=== PATIENT | male | born 1955 | race Hispanic/Latino ===

== ENCOUNTER → 2018-07-08 | Outpatient (CLI) | payer OTHER | END | disposition home or self-care (01) | LOC: OIH 14:50 | PROVIDERS: ATTEND Internal Medicine | DX: M17.11 Unilateral primary osteoarthritis, right knee (principal); M47.816 Spondylosis without myelopathy or radiculopathy, lumbar region | CPT/HCPCS: 72100; 73560 ==

== ENCOUNTER 2018-09-30 14:52 | Emergency (ER) | payer OTHER | END 2018-09-30 15:53 | disposition home or self-care (01) | LOC: EDH 14:52 | DX: M54.41 Lumbago with sciatica, right side (principal); M54.12 Radiculopathy, cervical region; Z72.0 Tobacco use ==

== ENCOUNTER → 2019-05-13 | Outpatient (CLI) | payer MEDICAID | END | disposition home or self-care (01) | LOC: OIH 09:23 | PROVIDERS: ATTEND Family Medicine | DX: M47.816 Spondylosis without myelopathy or radiculopathy, lumbar region (principal); M47.812 Spondylosis without myelopathy or radiculopathy, cervical region; M47.814 Spondylosis without myelopathy or radiculopathy, thoracic region; M48.02 Spinal stenosis, cervical region; M17.0 Bilateral primary osteoarthritis of knee; M25.78 Osteophyte, vertebrae; R07.9 Chest pain, unspecified | CPT/HCPCS: 71046; 72040; 72100; 73560 ==

== ENCOUNTER → 2019-05-16 | Outpatient (CLI) | payer MEDICAID | END | disposition home or self-care (01) | LOC: RAH 13:01 | PROVIDERS: ATTEND Family Medicine | DX: R22.31 Localized swelling, mass and lump, right upper limb (principal) | CPT/HCPCS: 76882 ==

== ENCOUNTER → 2019-09-06 | Outpatient (CLI) | payer MEDICAID | END | disposition home or self-care (01) | LOC: RAH 08:47 | PROVIDERS: ATTEND Family Medicine | DX: K76.0 Fatty (change of) liver, not elsewhere classified (principal); F10.10 Alcohol abuse, uncomplicated; R94.5 Abnormal results of liver function studies | CPT/HCPCS: 76536; 76705 ==

== ENCOUNTER → 2020-08-02 | Outpatient (CLI) | payer OTHER, MEDICARE ==
[~2020-08-02] MED LIST: REGADENOSON 0.4 MG/5 ML PF SYG IVP SCH
== END | disposition home or self-care (01) ==
LOC: RAH 09:52
PROVIDERS: ATTEND Family Medicine
DX: I20.9 Angina pectoris, unspecified (principal); R07.9 Chest pain, unspecified; R05 Cough; R06.00 Dyspnea, unspecified
CPT/HCPCS: 78452; 93017; 96374; A9500 ×2; J2785

== ENCOUNTER 2023-10-30 07:14 | Day surgery (SDC) | payer OTHER ==
[2023-10-28 12:59] VITALS: BP 138/75; PULSE 70; RESP 16
[2023-10-28 13:18] LABS: BASOPHILS # (AUTO) 0.05 K/uL (0.00-0.20); BASOPHILS % (AUTO) 0.5 % (0.0-5.0); EOSINOPHILS # (AUTO) 0.13 K/uL (0.00-0.70); EOSINOPHILS % (AUTO) 1.4 % (0.0-8.0); IMMATURE GRANULOCYTE ABSOLUTE 0.03 K/uL (0-1); LYMPHOCYTES # (AUTO) 1.7 K/uL (1.0-4.8); LYMPHOCYTES % (AUTO) 18.3 % (21.0-51.0); MEAN CORPUSCULAR HEMOGLOBIN 31.4 pg (27.0-33.0); MEAN CORPUSCULAR HGB CONC 33.2 g/dL (32.0-36.0); MEAN CORPUSCULAR VOLUME 94.8 fL (79-99); MONOCYTES % (AUTO) 10.9 % (3.0-13.0); NEUTROPHILS # (AUTO) 6.3 K/uL (1.8-7.7); NEUTROPHILS % (AUTO) 68.6 % (40.0-77.0); PLATELET COUNT (AUTO) 381 K/uL (130-400); RED BLOOD CELL COUNT(AUTO) 4.01 MIL/uL (4.50-6.20); RED CELL DISTRIBUTION WIDTH 12.6 % (11.0-15.5); WHITE BLOOD COUNT (AUTO) 9.2 K/uL (4.8-10.8)
[2023-10-28 13:24] LABS: CREATININE 1.9 mg/dL (0.5-1.3); POTASSIUM 5.4 mmol/L (3.5-5.1)
[~2023-10-30] VITALS: Ht 170.2 cm; Wt 89.3 kg
[2023-10-30] VITALS (17 sets, daily range): BP systolic 81–142; BP diastolic 51–90; PULSE 65–107; RESP 15–19
[~2023-10-30 07:14] MED LIST changes: +AEC81 PO; +AMLO-257 PO; +ATOR40TA69 PO; +CYAN-106 PO; +EMPA25TA PO; +LORA10TA7 PO; +MELA1TAB28 PO; +METO-391 PO; +PANT20TA18 PO; +RAMI10CA76 PO; -REGADENOSON 0.4 MG/5 ML PF SYG IVP SCH; +TAMS-1 PO; +THIA250T10 PO
[2023-10-30] MEDS: 0.9%NACL 1000ML 1,000 ML IV ONE (08:33)
[2023-10-30 08:43] LABS: CREATININE 2.1 mg/dL (0.5-1.3); POTASSIUM 4.3 mmol/L (3.5-5.1)
[2023-10-30] MEDS: ceFAZolin SODIUM 2 GM VIAL ONE (09:17)
[2023-10-30] MEDS ORDERED: LIDOCAINE PF 100MG/5ML (2%) SYRINGE 5ML ONE (09:50)
[2023-10-30] MEDS ORDERED: proPOFol 10 MG/ML 20ML VIAL IV ONE ×2 (09:50→11:28)
[2023-10-30] MEDS ORDERED: FENTanyl CITRate PF 50 MCG/1 ML 2ML VIAL ONE (09:50)
[2023-10-30] MEDS ORDERED: SUCCINYLCHOLINE CHLORIDE 20 MG/ML 10 ML VIAL ONE (09:50)
[2023-10-30] MEDS ORDERED: rocuRONium bROMide 10MG/1ML 5ML VL ONE (09:51)
[2023-10-30] MEDS ORDERED: MIDAZOLAM HCL 1 MG/ML 2ML VIAL ONE (09:51)
[2023-10-30] MEDS ORDERED: BUPIvacaine/PF 0.5% 30ML VIAL ONE (11:01)
[2023-10-30] MEDS ORDERED: NEOSTIGMINE METHYLSULFATE 1MG/ML IV ONE (11:07)
[2023-10-30] MEDS ORDERED: GLYCOPYRROLATE 0.2 MG/ML 5 ML VIAL ONE (11:07)
[2023-10-30] MEDS: ONDANSETRON 4MG INJ ONE (12:30)
[2023-10-30] MEDS: acetaMINOPHEN 1,000 MG/100 ML VIAL IV ONE (12:42)
[2023-10-30] MEDS: IBUPROFEN 800 MG TAB PO ONE (13:11)
== END 2023-10-30 13:40 | disposition home or self-care (01) ==
LOC: DAH 07:14
PROVIDERS: ATTEND Surgery
DX: L72.0 Epidermal cyst (principal); I10 Essential (primary) hypertension; I25.10 Atherosclerotic heart disease of native coronary artery without angina pectoris; E11.9 Type 2 diabetes mellitus without complications; E66.9 Obesity, unspecified; Z68.31 Body mass index [BMI] 31.0-31.9, adult; Z98.890 Other specified postprocedural states; Z87.891 Personal history of nicotine dependence; Z95.5 Presence of coronary angioplasty implant and graft; Z79.899 Other long term (current) drug therapy
CPT/HCPCS: 80048 ×2; 85025; 36415 ×2; 11406; 11402 ×2; 11403; 11404 ×2; 82948 ×2; 88304; 93005; A6260; A4663; J7030 ×2; A4452; J3010; J0330; J3490 ×2; J2001; J2250; J2704 ×2; J2405; J2710; J0665; J0690; A4215; A4223; A4222; A4221

== ENCOUNTER 2023-10-30 18:39 | Emergency (ER) | payer OTHER ==
[~2023-10-30] VITALS: Ht 170.2 cm; Wt 88.5 kg
[2023-10-30 20:48] LABS: BASOPHILS # (AUTO) 0.06 K/uL (0.00-0.20); BASOPHILS % (AUTO) 0.5 % (0.0-5.0); EOSINOPHILS # (AUTO) 0.18 K/uL (0.00-0.70); EOSINOPHILS % (AUTO) 1.6 % (0.0-8.0); HEMATOCRIT 34.9 % (42-54); IMMATURE GRANULOCYTE ABSOLUTE 0.03 K/uL (0-1); LYMPHOCYTES # (AUTO) 1.7 K/uL (1.0-4.8); LYMPHOCYTES % (AUTO) 15.8 % (21.0-51.0); MEAN CORPUSCULAR HEMOGLOBIN 31.8 pg (27.0-33.0); MEAN CORPUSCULAR HGB CONC 33.5 g/dL (32.0-36.0); MEAN CORPUSCULAR VOLUME 94.8 fL (79-99); MONOCYTES # (AUTO) 1.1 K/uL (0.1-1.0); MONOCYTES % (AUTO) 10.1 % (3.0-13.0); NEUTROPHILS # (AUTO) 7.9 K/uL (1.8-7.7); NEUTROPHILS % (AUTO) 71.7 % (40.0-77.0); PLATELET COUNT (AUTO) 309 K/uL (130-400); RED BLOOD CELL COUNT(AUTO) 3.68 MIL/uL (4.50-6.20); RED CELL DISTRIBUTION WIDTH 12.9 % (11.0-15.5)
[2023-10-30 21:07] LABS: CREATININE 2.1 mg/dL (0.5-1.3); POTASSIUM 4.8 mmol/L (3.5-5.1)
[2023-10-30 21:29] LABS: APPEARANCE,URINE CLEAR (CLEAR); BILIRUBIN,URINE NEGATIVE (NEGATIVE); COLOR,URINE LIGHT-YELLOW (YELLOW); GLUCOSE, URINE (UA) >=1000 mg/dL (NEGATIVE); KETONES,URINE NEGATIVE (NEGATIVE); LEUKOCYTE ESTERASE ,URINE NEGATIVE Leu/uL (NEGATIVE); NITRATE,URINE NEGATIVE (NEGATIVE); OCCULT BLOOD,URINE NEGATIVE (NEGATIVE); PH,URINE 5.5 (5.0-8.0); PROTEIN,URINE 30 mg/dL (NEGATIVE); UROBILINOGEN,URINE 0.2 mg/dL (0.2-1.0)
[2023-10-30 21:31] LABS: ADD UA MICROSCOPIC YES
[2023-10-30 21:32] LABS: RBC,URINE 0-1 /HPF (0-1); SQUAMOUS EPITHELIAL CELL,UR RARE /HPF (0-2); WBC,URINE 0-1 /HPF (0-1)
[2023-10-30] MEDS: 0.9% NACL 500ML IV.SOLN 500 ML IV ONE (22:27)
[2023-10-30 23:55] VITALS: BP 150/80; PULSE 93; RESP 25; O2SAT 98
== END 2023-10-31 00:06 | disposition home or self-care (01) ==
LOC: EDH 18:39
DX: R33.9 Retention of urine, unspecified (principal); I10 Essential (primary) hypertension; E78.00 Pure hypercholesterolemia, unspecified; I25.10 Atherosclerotic heart disease of native coronary artery without angina pectoris; I25.2 Old myocardial infarction; Z79.82 Long term (current) use of aspirin; Z79.899 Other long term (current) drug therapy; Z98.890 Other specified postprocedural states
CPT/HCPCS: 99284; 80048; 85025; 81001; 36415; 51702; J7040